=== PATIENT | male | born 1995 | race Caucasian/White ===

== ENCOUNTER 2021-11-07 00:05 | Emergency (ER) | payer OTHER ==
[2021-11-07 00:15] VITALS: BP 139/80
[2021-11-07] MEDS ORDERED: predniSONE 20 MG TABLET PO STA (01:39)
--- NOTE | 2021-11-07 02:06 | ED Physician Documentation ---
History of Present Illness - Stated complaint Stated Complaint: BACK PX - Chief complaint Chief Complaint: Back Pain - History obtained from History obtained from: Patient - Additonal information Additional information: The patient comes to the emergency department with chief complaint of midline low back pain after lifting an approximately 25 pound storage bin/box a few days ago. He states that it did not seem very heavy but he did feel a sudden sharp pain in his midline low back. He denies any loss of motor or sensory capabilities in his lower extremities. No difficulty controlling bowels or bladder. The patient states that he was not hurt in any other way. He states he has tried taking ibuprofen and Tylenol and has continued to move around and go to work, but the pain persists. He states its difficult to both sit and to move around at work. No other complaints at this time. Review of Systems Ten Systems: 10 systems reviewed and negative Constitutional: reports: Reviewed and negative Eyes: reports: Reviewed and negative Ears: reports: Reviewed and negative Nose: reports: Reviewed and negative Throat: reports: Reviewed and negative Cardiac: reports: Reviewed and negative Respiratory: reports: Reviewed and negative GI: reports: Reviewed and negative : reports: Reviewed and negative Skin: reports: Reviewed and negative Musculoskeletal: reports: Back pain Neurologic: reports: Reviewed and negative Psychiatric: reports: Reviewed and negative Endocrine: reports: Reviewed and negative Immunocompromised: reports: Reviewed and negative PD PAST MEDICAL HISTORY - Past Medical History Past Medical History: No Cardiovascular: None Respiratory: None Neuro: None Endocrine/Autoimmune: None GI: None : None HEENT: None Psych: None Musculoskeletal: None Derm: None - Past Surgical History Past Surgical History: Yes HEENT: Tonsil/Adenoidectomy - Present Medications Home Medications: Ambulatory Orders Medication Instructions Recorded Confirmed Cyclobenzaprine [Flexeril] 10 mg PO TID PRN #20 tablet 11/07/21 predniSONE [Deltasone] 60 mg PO DAILY 5 Days #15 tablet 11/07/21 - Allergies Allergies/Adverse Reactions: Allergies Allergy/AdvReac Type Severity Reaction Status Date / Time No Known Drug Allergies Allergy Verified 11/07/21 00:13 - Social History Does the pt smoke?: No Smoking Status: Never smoker Does the pt drink ETOH?: Yes Does the pt have substance abuse?: No - Immunizations Immunizations are current?: Yes - POLST Patient has POLST: No PD ED PE NORMAL - Vitals Vital signs reviewed: Yes - General General: Alert and oriented X 3, No acute distress, Well developed/nourished - HEENT HEENT: Atraumatic, PERRL, EOMI, Moist mucous membranes - Neck Neck: Supple, no meningeal sign - Respiratory Respiratory: No respiratory distress - Derm Derm: Normal color, Warm and dry, No rash - Extremities Extremities: No deformity, Normal ROM s pain, No edema - Neuro Neuro: Alert and oriented X 3, wire threader 2-12 intact, No motor deficit, No sensory deficit, Normal speech - Psych Psych: Normal mood, Normal affect Results - Vitals Vitals: Vital Signs - 24 hr 11/07/21 11/07/21 11/07/21 00:13 00:33 00:59 Temperature 36.5 C Heart Rate 68 Respiratory 16 15 15 Rate Blood Pressure 139/80 H O2 Saturation 98 11/07/21 02:18 Temperature Heart Rate Respiratory 15 Rate Blood Pressure O2 Saturation Oxygen O2 Source Room air - Rads (name of study) Lumbar spine x-ray series Radiology: Final report received, EMP read indepedently, See rad report (Negative) PD MEDICAL DECISION MAKING - ED course Complexity details: reviewed results, re-evaluated patient, considered di fferential, d/w patient ED course: I discussed with the patient that it is unlikely that he has sustained a bony injury, given the At the event that brought the episode on. I will get a screening x-ray series because we do not have MRI here and that is the test I think would be most helpful to this patient if any. [place] for more than the next several days and talk to them about the next most appropriate step. I have given the patient a dose of steroids here in the emergency department and a prescription for the same plus Flexeril. We have discussed the usual indications for return. Departure - Departure Disposition: 01 Home, Self Care Clinical Impression: Back pain Qualifiers: Back pain location: low back pain Chronicity: acute Back pain laterality: midline Sciatica presence: without sciatica Qualified Code(s): M54.50 - Low back pain, unspecified Condition: Stable Instructions: ED Low Back Pain Injury Prescriptions: predniSONE [Deltasone] 60 mg PO DAILY 5 Days #15 tablet Cyclobenzaprine [Flexeril] 10 mg PO TID PRN #20 tablet PRN Reason: Spasms Comments: Your x-rays overall look pretty good. There is no evidence of malalignment or fracture. You have most likely strained one of the soft tissue structures of the general lumbar spine area, or you may have herniated a disc. The best test to show this in more detail would be an MRI, which would not be done emergently in this scenario, but could be done through your primary doctor's office. Please call first thing in the morning to make an appointment. In the meantime, you may take ibuprofen and Tylenol as needed, along with the prescribed medications. A note has been given outlining the limitations at work until you are feeling better. Your prescriptions have been electronically transmitted to the [facility] pharmacy in [place] at your request. Forms: Activity restrictions Discharge Date/Time: 11/07/21 02:19
--- NOTE | 2021-11-07 08:04 | XRAY Report ---
PROCEDURE: Lumbar Spine 2 View INDICATIONS: back pain/injury TECHNIQUE: 2 views of the lumbar spine were acquired. COMPARISON: None. FINDINGS: Bones: 5 [id number] vertebrae are present. There is normal bony alignment. Mild disc height lo ss L5-S1. No vertebral body compression fractures. No suspicious bony lesions. Soft tissues: Overlying bowel gas pattern is normal. No suspicious soft tissue calcifications. IMPRESSION: 1. Mild L5-S1 disc degeneration. 2. Final interpretation concordant with preliminary report. Reviewed by: Bella Rosenberg MD on 11/07/2021 8:03 AM PDT Approved by: Bella Rosenberg MD on 11/07/2021 8:03 AM PDT Station ID: [id number]
== END 2021-11-07 02:19 | disposition home or self-care (01) ==
LOC: ED 00:05
DX: M54.50 Low back pain, unspecified (principal)
CPT/HCPCS: 72100; 99282; 99283; J7512